=== PATIENT | female | born 1950 | race Caucasian/White ===

== ENCOUNTER 2024-05-04 00:34 | Outpatient (CLI) | payer MEDICARE, OTHER | END 2024-05-04 00:35 | disposition critical access hospital (66) | LOC: EMS 00:34 | DX: M54.50 Low back pain, unspecified (principal); R47.81 Slurred speech | CPT/HCPCS: A0425; A0427 ==

== ENCOUNTER 2024-05-04 00:50 | Emergency (ER) | payer MEDICARE, OTHER ==
--- NOTE | 2024-05-04 01:09 | ED Physician Documentation ---
History of Present Illness - Stated complaint Stated Complaint: LOWER BACK PAIN - Chief complaint Chief Complaint: Back Pain - History obtained from History obtained from: Patient, EMS - Additonal information Additional information: The patient comes to the emergency department with chief complaint of right low back pain that happened suddenly while she was walking. Patient states she has 3 low low back issues and that about 15 years ago, she was told that she has a herniated disc around the L3 area that would "someday cause me problems". The patient denies any direct injury. She states that she felt a sudden sharp pain that was very focused and that she thought she felt a pop when the pain began. Medics state they gave her 15 mg of Toradol and 50 mg micrograms of fentanyl and the patient is now pain-free. Patient denies any loss of bowel or bladder control. No sciatica symptoms. No numbness or tingling in her foot. PD PAST MEDICAL HISTORY - Past Medical History Past Medical History: Yes - Past Surgical History Past Surgical History: Yes - Present Medications Home Medications: Ambulatory Orders Medication Instructions Recorded Confirmed Alendronate [Fosamax] 1 tab PO OAW 05/04/24 05/04/24 Apixaban [Eliquis] 1 tab PO BID 05/04/24 05/04/24 Aspirin [Cherise] 325 mg PO DAILY 05/04/24 05/04/24 Biotin 2,500 mcg PO BID 05/04/24 05/04/24 Calcium Carbonate [Calcium] 1,200 mg PO DAILY 05/04/24 05/04/24 Cholecalciferol (Vitamin D3) 1,250 mcg PO DAILY 05/04/24 05/04/24 [Vitamin D3] Cyanocobalamin (Vitamin B-12) 1 cap PO DAILY 05/04/24 05/04/24 [Vitamin B-12] Cyclobenzaprine [Flexeril] 10 mg PO TID PRN #20 tablet 05/04/24 Famotidine 40 mg PO DAILY 05/04/24 05/04/24 Ferrous Sulfate [Feosol] 1 tab PO DAILY 05/04/24 05/04/24 Furosemide [Lasix] 40 mg PO DAILY 05/04/24 05/04/24 HYDROcod/ACETAM 5/325 [Fletcher 5/325] 1 - 2 tablet PO Q6H PRN #14 tablet 05/04/24 Metoprolol Succinate [Toprol Xl] 1 tab PO DAILY 05/04/24 05/04/24 [place]-3/Dha/Epa/Fish Oil [Fish Oil 1 each PO DAILY 05/04/24 05/04/24 1,000 mg Softgel] Pravastatin Sodium 1 tab PO DAILY 05/04/24 05/04/24 Ubidecarenone [Co Q-10] 100 mg PO DAILY 05/04/24 05/04/24 glucosamine HCL [Glucosamine HCl] 1 tab PO DAILY 05/04/24 05/04/24 - Allergies Allergies/Adverse Reactions: Allergies Allergy/AdvReac Type Severity Reaction Status Date / Time codeine Allergy Unknown Verified 05/04/24 00:58 - Social History Does the pt smoke?: No Smoking Status: Never smoker PD ED PE NORMAL - Vitals Vital signs reviewed: Yes - General General: Alert and oriented X 3, No acute distress, Well developed/nourished, Other (Morbidly obese) - HEENT HEENT: Atraumatic, EOMI, Moist mucous membranes - Neck Neck: Supple, no meningeal sign - Respiratory Respiratory: No respiratory distress - Back Back: No spinal TTP, Other (No tenderness to palpation over right lumbar par aspinal musculature or right SI joint.) - Derm Derm: Normal color, Warm and dry, No rash - Extremities Extremities: No deformity, No edema - Neuro Neuro: Alert and oriented X 3, aging room hand 2-12 intact, No motor deficit, No sensory deficit, Normal speech - Psych Psych: Normal mood, Normal affect Results - Vitals Vitals: Vital Signs - 24 hr 05/04/24 05/04/24 00:56 00:58 Temperature 36.3 C L Heart Rate 70 68 Respiratory 18 Rate Blood Pressure 123/62 O2 Saturation 95 Oxygen O2 Source Room air - Rads (name of study) CT lumbar spine no contrast Relevant Findings:: Final report received, See rad report (Degenerative changes at multiple levels of the spine. No acute fractures.) PD Medical Decision Making - ED course Complexity details: reviewed results, re-evaluated patient, considered differential, d/w patient ED course: The patient was worked up with x-ray series of the lumbar spine. She was asymptomatic upon arrival after treatment en-route by EMS. The patient could not stand up for x-rays so I did order CT scan instead. This showed degenerative changes at multiple levels, most pronounced at L4-5, but no acute fractures. The patient did not have any concerning symptoms or neurologic deficits to indicate a more serious injury. I gave her 1 more dose of analgesia and I felt she was stable for discharge home. We have discussed the need for follow-up and discussion about possible MRI if her symptoms go on for more than the next couple of weeks. We discussed the usual indications for return. Departure - Departure Disposition: 01 Home, Self Care Clinical Impression: Lumbar strain Qualifiers: Encounter type: initial encounter Qualified Code(s): S39.012A - Strain of muscle, fascia and tendon of lower back, initial encounter Condition: Stable Instructions: ED Sprain Strain Lumbar Prescriptions: Cyclobenzaprine [Flexeril] 10 mg PO TID PRN #20 tablet PRN Reason: Spasms HYDROcod/ACETAM 5/325 [Fletcher 5/325] 1 - 2 tablet PO Q6H PRN #14 tablet PRN Reason: Pain Comments: The CT scan of your spine shows some degenerative changes, worst between your fourth and fifth lumbar vertebrae. This is not unusual with a history of back injury and also, just with the wear and tear of some decades of life. No stress fractures or compression fractures were noted. Most likely, you have strained the soft tissues of your low back and a focused area and most likely torn some of the muscle fibers there. This can sometimes happen with seemingly normal movements done in the normal way. In general, the symptoms should be expected to blow over on their own in the next couple of weeks. If it goes on without any improvement for longer than this, you will need to talk to your primary doctor about what to do next. Please consider talking with your doctor about weight loss strategy as well, as this will help prevent some of the strain in your back and the propensity to injury. You have been given medications to help with your pain by both the medics and ourselves here in the ED. I have given you a prepack of pain medication to get you through tonight, as well as sent prescriptions for pain medicine and muscle relaxer to the [facility] pharmacy in [place]. You may pick this up in the morning.
[2024-05-04] MEDS: HYDROcod/ACET 5/325 Prepack 4 PO STA (01:16)
--- NOTE | 2024-05-04 01:47 | CT Report ---
PROCEDURE: Lumbar Spine WO INDICATIONS: Pain R lumbar spine L3 TECHNIQUE: Noncontrast 3 mm thick sections acquired from the T12 level to the sacrum. Sagittal and coronal refo rmats were constructed. For radiation dose reduction, the following was used: automated exposure co ntrol, adjustment of mA and/or kV according to patient size. COMPARISON: None. FINDINGS: Image quality: Excellent. Bones: Straightening of the normal lumbar lordosis. Minimal levocurvature. Multilevel degenerative ch anges, stress at L4-L5 where there is severe disc height loss, vacuum disc phenomenon, degenerative e ndplate changes and spurring. More mild multilevel degenerative changes at other levels. Multilevel f acet arthropathy, most pronounced within the lower lumbar spine. No vertebral body compression deform ities. No acute fractures are seen. There is at least moderate central canal stenosis at L3-L4 and L4-5. Severe left neuroforaminal steno sis at L4-5. At least moderate neuroforaminal stenosis on the right at L4-L5 and bilaterally at L5-S1 . Soft tissues: No retroperitoneal masses or hematomas. Visualized aorta is normal in caliber. Ather osclerotic vascular calcifications. Diverticulosis without evidence of acute diverticulitis within th e visualized bowel. Status post cholecystectomy. IMPRESSION: Multilevel degenerative changes of the lumbar spine as described above, most pronounced at L4-L5. No acute fractures. Reviewed by: Amor Mclean MD on 05/04/2024 1:45 AM PDT Approved by: Amor Mclean MD on 05/04/2024 1:45 AM PDT Station ID: [id number]
[2024-05-04] MEDS: HYDROmorphone 1 MG/ML CARPUJECT IVP STA (02:14)
[2024-05-04 02:33] VITALS: BP 115/58; O2SAT 98
== END 2024-05-04 02:29 | disposition home or self-care (01) ==
LOC: ED 00:50
DX: S39.012A Strain of muscle, fascia and tendon of lower back, initial encounter (principal); X58.XXXA Exposure to other specified factors, initial encounter; Z79.01 Long term (current) use of anticoagulants
CPT/HCPCS: 72131; 96374; 99284; J1170